=== PATIENT | female | born 1950 | race Caucasian/White ===

== ENCOUNTER 2016-06-05 08:29 | Outpatient (CLI) | payer MEDICARE ==
[2016-06-05 10:07] LABS: ALT (SGPT) 19 U/L (0-55); AST (SGOT) 20 U/L (5-34); Albumin 4.3 g/dL (3.4-4.8); Alkaline Phosphatase 87 U/L (40-150); Bilirubin, Direct 0.2 mg/dL (0.1-0.3); Bilirubin, Total 0.5 mg/dL (0.2-1.2); Cardiac Risk 4.3 (Less than 4.5); Cholesterol 188 mg/dL (< 200 Desired); HDL Cholesterol 44 mg/dL (>60 Neg Risk); LDL Cholesterol, Calculated 120 mg/dL; Protein, Total 6.8 g/dL (5.8-8.1); Triglycerides 119 mg/dL (Less than 150)
== END 2016-06-05 08:30 | disposition home or self-care (01) ==
LOC: BURLAB 08:29
PROVIDERS: ATTEND Internal Medicine Cardiovascular Disease
DX: E78.2 Mixed hyperlipidemia (principal)
CPT/HCPCS: 36415; 80061; 80076

== ENCOUNTER 2016-10-08 07:53 | Outpatient (CLI) | payer MEDICARE ==
[2016-10-08 09:36] LABS: ALT (SGPT) 20 U/L (8-55); AST (SGOT) 19 U/L (5-34); Albumin 4.3 g/dL (3.4-4.8); Alkaline Phosphatase 85 U/L (40-150); Bilirubin, Direct 0.2 mg/dL (0.1-0.3); Bilirubin, Total 0.5 mg/dL (0.2-1.2); Cardiac Risk 4.7 (Less than 4.5); Cholesterol 218 mg/dl (< 200 Desired); HDL Cholesterol 46 mg/dL (>60 Neg Risk); LDL Cholesterol, Calculated 147 mg/dL; Protein, Total 6.7 g/dL (6.0-8.3); Triglycerides 127 mg/dL (Less than 150)
== END 2016-10-08 07:54 | disposition home or self-care (01) ==
LOC: BURLAB 07:53
PROVIDERS: ATTEND Internal Medicine Cardiovascular Disease
DX: E78.2 Mixed hyperlipidemia (principal); Z79.899 Other long term (current) drug therapy
CPT/HCPCS: 36415; 80061; 80076

== ENCOUNTER 2021-04-22 19:05 | Emergency (ER) | payer MEDICARE | END 2021-04-22 20:22 | disposition home or self-care (01) | LOC: BURERS 19:05 | DX: R04.0 Epistaxis (principal); I10 Essential (primary) hypertension; E78.00 Pure hypercholesterolemia, unspecified | CPT/HCPCS: 99283 ==

== ENCOUNTER 2021-09-25 09:27 | Outpatient (CLI) | payer MEDICARE | END 2021-09-25 09:28 | disposition home or self-care (01) | LOC: BURRAD 09:27 | PROVIDERS: ATTEND Registered Nurse Community Health | DX: S59.902D Unspecified injury of left elbow, subsequent encounter (principal) ==